=== PATIENT | male | born 1975 | race Caucasian/White ===

== ENCOUNTER 2017-12-02 23:32 | Emergency (ER) | payer SELFPAY, OTHER ==
[2017-12-03] MEDS: DIAZEPAM 5 MG/ML SYG IM (02:02)
[2017-12-03] MEDS: HYDROCODONE/APAP (10/325) TAB PO (02:02)
== END 2017-12-03 04:34 | disposition home or self-care (01) ==
LOC: FTE 23:32
DX: M54.5 Low back pain (principal)
CPT/HCPCS: 72131; 96372; 99285-25